=== PATIENT | female | born 1970 | race African-American/Black ===

== ENCOUNTER 2023-11-10 11:40 | Emergency (ER) | payer OTHER ==
[2023-11-10 12:01] VITALS: TEMP 97.7; BMI 29.6
[2023-11-10] MEDS: ALBUTEROL SO4 0.083% IH SOL 2.5 MG/3 ML VIAL.NEB. NEB ONE ×2 (12:11→12:54)
[2023-11-10] MEDS ORDERED: ACETAMINOPHEN INJECTION 100 ML ONE (13:33)
[2023-11-10 13:35] LABS: BASO % 0.7 % (0-2.0); EOS % 1.3 % (0-4.5); HEMATOCRIT 41.5 % (32.4-45.2); HEMOGLOBIN 13.8 GM/dL (10.7-15.3); LYMPH % 21.8 % (8-40); MCH 30.4 pg (25.7-33.7); MCHC 33.1 g/dl (32.0-36.0); MEAN CELL VOLUME 91.8 fl (80-96); MEAN PLT VOLUME 8.6 fl (7.5-11.1); MONO % 2.9 % (3.8-10.2); NEUT % 73.3 % (42.8-82.8); PLATELET COUNT 223 10^3/uL (134-434); RBC 4.53 M/mm3 (3.60-5.2); RDW 13.4 % (11.6-15.6); WHITE BLOOD COUNT 6.2 K/mm3 (4.0-10.0)
[2023-11-10] MEDS: ACETAMINOPHEN 1000 MG/100 ML BAG IVPB ONE (13:37)
[2023-11-10 14:02] LABS: POTASSIUM 3.7 mmol/L (3.5-5.1)
[2023-11-10 14:04] LABS: ALBUMIN 3.8 g/dl (3.4-5.0); BLOOD UREA NITROGEN 13.8 mg/dL (7-18); CALCIUM 9.2 mg/dL (8.5-10.1)
[2023-11-10 14:09] LABS: TOT PROT 7.5 g/dl (6.4-8.2)
[2023-11-10 14:13] LABS: BILIRUBIN,TOTAL 0.2 mg/dL (0.2-1)
[2023-11-10] MEDS ORDERED: LORATADINE 10 MG TABLET ONE (14:27)
[2023-11-10] MEDS: LORATADINE 10 MG TABLET PO ONE (14:31)
[2023-11-10 14:32] VITALS: BP 135/70
[2023-11-10 15:45] VITALS: PULSE 103; RESP 22
[2023-11-10] MEDS: ALBUTEROL SO4 HFA INHALER IH ONE (15:46)
[2023-11-10] MEDS ORDERED: ALBUTEROL SO4 HFA INHALER IH ONE (15:46)
== END 2023-11-10 16:00 | disposition home or self-care (01) ==
LOC: JER 11:40
PROC: 3E0F7GC Introduction of Other Therapeutic Substance into Respiratory Tract, Via Natural or Artificial Opening (ICD-10-PCS; principal; 2023-11-10)
PROC: 3E0F7GC Introduction of Other Therapeutic Substance into Respiratory Tract, Via Natural or Artificial Opening (ICD-10-PCS; 2023-11-10)
PROC: 3E033NZ Introduction of Analgesics, Hypnotics, Sedatives into Peripheral Vein, Percutaneous Approach (ICD-10-PCS; 2023-11-10)
DX: R06.02 Shortness of breath (principal); R07.89 Other chest pain
CPT/HCPCS: 36415; 71045-TC-FY; 80053; 84484; 85025; 93005; 93010; 99285-25; J0131